=== PATIENT | female | born 1955 | race Caucasian/White ===

== ENCOUNTER 2022-07-19 09:17 | Outpatient (CLI) | payer OTHER, MEDICAID | END 2022-07-19 09:18 | disposition home or self-care (01) | LOC: CSHMAMMO 09:17 | PROVIDERS: ATTEND Family Medicine | DX: Z12.31 Encounter for screening mammogram for malignant neoplasm of breast (principal); M85.851 Other specified disorders of bone density and structure, right thigh; M85.852 Other specified disorders of bone density and structure, left thigh; Z78.0 Asymptomatic menopausal state; Z80.3 Family history of malignant neoplasm of breast | CPT/HCPCS: 77063; 77067; 77080 ==